=== PATIENT | female | born 1995 | race Caucasian/White ===

== ENCOUNTER 2022-08-09 16:04 | Emergency (ER) | payer OTHER, SELFPAY ==
[2022-08-09 16:24] VITALS: BP 150/98; PULSE 65; RESP 16; TEMP 36.7; O2SAT 100
--- NOTE | 2022-08-09 16:50 | ED.URI ---
HPI - URI/Sore Throat General Chief Complaint: Upper Respiratory Infection Stated Complaint: chest congestion Time Seen by Provider: 08/09/22 16:50 Source: patient Mode of arrival: ambulatory Limitations: no limitations History of Present Illness HPI Narrative: 27 yo F presents with c/o sinus congestion, bilateral ear pain, sore throat, PND for 2 days. Has had pain to L ear for 3 days. Was seen at [facility] urgent care and given amoxicillin and medrol dosepak. is also taking sudafed and saline nasal spray. Reports sudafed and steroids making her anxiety worse. denies chest pain and shortness of breath. All systems reviewed and negative except as noted above. Related Data Home Medications Medication Instructions Recorded Confirmed Flonase 08/09/22 Sudafed 08/09/22 amoxicillin 875 mg tablet mg 08/09/22 escitalopram oxalate 10 mg tablet mg 08/09/22 methylprednisolone 4 mg tablets in mg 08/09/22 a dose pack Allergies Allergy/AdvReac Type Severity Reaction Status Date / Time No Known Allergies Allergy Mild Unverified 08/09/22 16:48 Review of Systems Review of Systems: CONSTITUTIONAL: Denies fever, chills, or sweats. EYES: Denies visual changes, redness, or discharge. ENT: Reports rhinorrhea, congestion, sore throat, postnasal drainage, bilateral ear pain. CARDIOVASCULAR: Denies chest pain, palpitations, or edema. RESPIRATORY: Denies cough or dyspnea. GASTROINTESTINAL: Denies abdominal pain, nausea, vomiting, or diarrhea. GENITOURINARY: Denies dysuria or hematuria. SKIN: Denies rash or itching. MUSCULOSKELETAL: Denies back pain, joint pain, or myalgia. NEUROLOGIC: Denies headache, numbness, or weakness. PSYCHIATRIC: Denies anxiety or depression. All other systems reviewed are negative, except as documented in HPI. PMFSH Comments At time of signature, agree with nursing past medical, surgical, social and family history. There is no relevant family history pertinent to the presenting complaint. Exam Narrative: GENERAL: This is a well-nourished, well-developed patient, in no apparent distress. HEAD: normocephalic, atraumatic. EYES: PERRL. Sclera clear/white. Vision is grossly intact. EARS: External ears normal, auditory canals clear and without drainage, clear fluid bilateral TMs. Mild erythema to left TM. No perforation bilaterally. NOSE: External nose normal with Clear nasal drainage, no erythema or swelling to nares. THROAT: Mucous membranes moist, Clear postnasal drainage. NECK: Neck supple, non-tender without lymphadenopathy, masses or thyromegaly. CARDIOVASCULAR: Regular rate and rhythm without murmurs, gallops, or rubs. RESPIRATORY: Clear to auscultation. Breath sounds equal bilaterally. No wheezes, rales, or rhonchi. SKIN: warm, Dry, intact with no suspicious lesions or rash, good texture and turgor. NEURO: awake, alert, and oriented to person, place and time. There were no obvious focal neurologic abnormalities. EXTREMITIES: No joint tenderness, effusion, or edema noted. Course Course Level of Care: Express Care Visit Vital Signs Vital signs: Vital Signs Temperature 36.7 C 08/09/22 16:24 Pulse Rate 65 08/09/22 16:24 Respiratory Rate 16 08/09/22 16:24 Blood Pressure 150/98 H 08/09/22 16:24 Pulse Oximetry 100 08/09/22 16:24 Oxygen Delivery Room Air 08/09/22 16:24 Temperature 36.7 C 08/09/22 16:24 Pulse Rate 65 08/09/22 16:24 Respiratory Rate 16 08/09/22 16:24 Blood Pressure 150/98 H 08/09/22 16:24 Pulse Oximetry 100 08/09/22 16:24 Oxygen Delivery Room Air 08/09/22 16:24 Reviewed MDM - URI/Sore Throat MDM Narrative Medical decision making narrative: Patient is aware of diagnosis, understands and agrees to treatment plan. Anticipatory guidance given. Patient agrees to follow-up as directed and is aware of reasons to seek care at the emergency department. Portions of this record may have been created with voice recognition software
== END 2022-08-09 17:04 | disposition home or self-care (01) ==
PROVIDERS: Emergency Provider Nurse Practitioner Family; PCP Internal Medicine
DX: H65.03 Acute serous otitis media, bilateral (principal); J01.90 Acute sinusitis, unspecified
CPT/HCPCS: 99211; G0463

== ENCOUNTER 2024-04-12 05:57 | Emergency (ER) | payer OTHER, SELFPAY ==
[2024-04-12 05:58] VITALS: BP 136/81; PULSE 110; RESP 16; TEMP 36.3; O2SAT 100
[2024-04-12 06:53] LABS: Influenza A QL RT-PCR Positive (Negative); Influenza B QL RT-PCR Negative (Negative); SARS-CoV-2 RNA PCR Negative (Negative)
--- NOTE | 2024-04-12 07:14 | ED_ITS ---
HPI - General Adult General Chief complaint: Upper Respiratory Infection Stated complaint: fever, congestion Time Seen by Provider: 04/12/24 06:52 History of Present Illness HPI narrative: 29-year-old female present to the emergency department for evaluation for cough congestion body aches and fever for the past 24 hours. Related Data Home Medications ?Medication ?Instructions ?Recorded ?Confirmed ?Last Taken ?Type Flonase 08/09/22 Unknown History Allergies Allergy/AdvReac Type Severity Reaction Status Date / Time No Known Allergies Allergy Mild Unverified 04/12/24 06:02 Review of Systems Review of Systems: All systems reviewed & are unremarkable except as noted in HPI and below Exam Narrative: APPEARANCE: Well appearing, no pain, no distress, well-nourished. HEAD: normocephalic, atraumatic. EYES: PERRLA/EOMI, conjunctivae clear. NOSE: Normal no drainage EARS:TMS clear with good light reflex. THROAT: Pharynx clear, no exudate. NECK: Supple. No adenopathy, no masses. RESPIRATORY: Airway patent, respirations nonlabored. Clear to auscultation bilaterally, no rales, rhonchi, wheezing. CARDIOVASCULAR: Regular rate and rhythm without murmurs rubs or gallops. ABDOMINAL: Soft, nontender, nondistended, normal bowel sounds MUSCULOSKELETAL: Moves all extremities. Strength/ROM intact, No edema, No calf tenderness. NEURO: Alert. Cranial nerves II through XII intact. Good gait. Good coordination SKIN: Warm, dry. Normal Color Course Vital Signs Vital signs: Vital Signs Temperature 97.4 F L 04/12/24 05:58 Pulse Rate 110 H 04/12/24 05:58 Respiratory Rate 16 04/12/24 05:58 Blood Pressure 136/81 04/12/24 05:58 Pulse Oximetry 100 04/12/24 05:58 Oxygen Delivery Room Air 04/12/24 05:58 Temperature 97.4 F L 04/12/24 05:58 Pulse Rate 110 H 04/12/24 05:58 Respiratory Rate 16 04/12/24 05:58 Blood Pressure 136/81 04/12/24 05:58 Pulse Oximetry 100 04/12/24 05:58 Oxygen Delivery Room Air 04/12/24 05:58 Medical Decision Making [facility] Narrative Medical decision making narrative: 29-year-old female presenting ED for evaluation for body aches fever cough and shortness of breath. Patient did test positive for influenza A. Patient's vital signs are within normal limits other than a mildly elevated heart rate. Patient is not hypoxic and is maintaining oxygen on room air. Patient family updated on the results of the workup and plan for treatment for home. All questions concerns were addressed. Differential Diagnosis Differential Diagnosis: COVID flu RSV influenza pneumonia Vital Signs Vital Signs: Vital Signs Temperature 97.4 F L 04/12/24 05:58 Pulse Rate 110 H 04/12/24 05:58 Respiratory Rate 16 04/12/24 05:58 Blood Pressure 136/81 04/12/24 05:58 Pulse Oximetry 100 04/12/24 05:58 Oxygen Delivery Room Air 04/12/24 05:58 Temperature 97.4 F L 04/12/24 05:58 Pulse Rate 110 H 04/12/24 05:58 Respiratory Rate 16 04/12/24 05:58 Blood Pressure 136/81 04/12/24 05:58 Pulse Oximetry 100 04/12/24 05:58 Oxygen Delivery Room Air 04/12/24 05:58 Lab Data Labs: Lab Results 04/12/24 Range/Units 06:09 Influenza A (RT-PCR) Positive A (Negative) Influenza B (RT-PCR) Negative (Negative) SARS-CoV-2 RNA (RT-PCR) Negative (Negative) Discharge Plan Discharge Clinical Impression: Upper respiratory infection, Influenza Patient Disposition: Home, Self-Care Condition: Stable Instructions: Antibiotic Form, Influenza (ED) Additional Instructions: Tylenol and ibuprofen for body aches and fever control. Drink plenty of fluids. Albuterol inhaler for shortness breath and Tessalon Perles for cough. Have close follow-up with your primary care physician. Patient Language: Vietnamese Prescriptions: New albuterol sulfate 90 mcg/actuation HFA aerosol inhaler 1 puff inhalation QID PRN (Reason: shortness of breath or wheezing) Qty: 6.7 0RF benzonatate 100 mg capsule 100 mg PO TID PRN (Reason: cough) Qty: 14 0RF No Action Flonase Follow-up/Referrals: Harpreet Sierra MD [Primary Care Provider] -
--- NOTE | 2024-04-12 07:14 | PC.NURSE ---
This RN took over care of this patient at this time
--- OUTSIDE RECORDS SUMMARY | 2024-04-19 04:29 | XMS_ITS | Clinical Summary ---
Author Organization [facility] Address [address] [place] [address] Phone Care Team Providers Care Pressing Machine Operator Name Role Phone Unavailable Primary Care Provider Unavailabl e Medications Medication Sig Dispensed Refills Start Date End Date Status norethindrone Ac-Eth estradiol 1-20 mg-mcg tablet TAKE 1 TABLET DAILY 63 Tablet 3 12/28/2019 Active Social History Tobacco Use Types Packs/Day Years Used Date Smoking Tobacco: Never Assessed Sex and Gender Information Value Date Recorded Sex Assigned at Not on file Gender Identity Not on file Sexual Orientation Not on file Plan of Treatment Health Maintenance Due Date Last Done Comments DTAP/TDAP/TD VACCINES (1 - Tdap) 01/09/2016 HEPATITIS B VACCINES (1 of 3 - 19+ 3-dose series) 01/09/2016 CERVICAL CANCER SCREENING 2018 INFLUENZA VACCINE (#1) 2023 HPV VACCINES Aged Out No longer eligi ble based on patient's age to complete this topic PNEUMOCOCCAL VACCINE 0-64 YEARS Aged Out No longer eligible based on patient's age to complete this topic
--- OUTSIDE RECORDS SUMMARY | 2024-04-19 04:29 | XMS_ITS | Clinical Summary ---
Author Organization [facility] Care Team Providers Care Backup Administrator Name Role Phone Unavailable Primary Care Provider Unavailabl e Social History Tobacco Use Types Packs/Day Years Used Date Smoking Tobacco: Never Assessed Comments Unknown Sex and Gender Information Value Date Recorded Sex Assigned at Not on file Legal Sex Female 11:09 AM CDT Gender Identity Not on file Sexual Orientation Not on file Plan of Treatment Health Maintenance Due Date Last Done Comments Hepatitis C Virus (HCV) Screening 1997 TdaP Immunization 1997 Human Papillomavirus (HPV) Immunization (1 - 3-dose series) 01/09/2012 Hepatitis B Immunization (1 of 3 - 19+ 3-dose series) 01/09/2016 Pap Smear 2018 SARS-COV-2 Immunization ( season) 2022 Influenza Immunization (Seas on Ended) 2023 Meningococcal Immunization (ACWY) Aged Out No longer eligible based on patient's age to complete this topic Pneumococcal Immunization Combined Aged Out No longer eligible based on patient's age to complete this topic Rotavirus Immunization Aged Out No lo nger eligible based on patient's age to complete this topic
--- OUTSIDE RECORDS SUMMARY | 2024-04-19 04:29 | XMS_ITS | Encounter Summary ---
Author Organization [facility] Address [address] [place] [id number] Care Team Providers Care Communication Technician Name Role Phone Unavailable Primary Care Provider Unavailabl e Encounter Details Date Type Department Care Team (Late st Contact Info) Description 06/30/2020 Lab Requisition [facility] Community Testing [facility] [address] [place] [address] Wilver Pablo MD [address] [place] [address] [address] [place], [place] [id number] Social History Tobacco Use Types Packs/Day Years Used Date Smoking Tobacco: Never Assessed Comments Unknown Sex and Gender Information Value Date Recorded Sex Assigned at Not on file Legal Sex Female 11:09 AM CDT Gender Identity Not on file Sexual Orientation Not on file documented as of this encounter Plan of Treatment Not on file documented as of this encounter Procedures Procedure Name Priority Date/Time Associated Diagnosis Comments SARS-COV-2 PCR [facility] ONLY Routine 06/30/2020 11:14 AM CDT documented in this encounter Visit Diagnoses Not on filedocumented in this encounter
--- OUTSIDE RECORDS SUMMARY | 2024-04-19 04:29 | XMS_ITS | Encounter Summary ---
Author Organization [facility] Address [address] [place] [address] Care Team Providers Care Electrical Accessories I Assembler Name Role Phone Unavailable Primary Care Provider Unavailabl e Reason for Visit * Reason Comments Medication Refill Encounter Details Date Type Department Care Team (Late st Contact Info) Description 12/01/2020 Refill [facility] [place] BURLES[employer] DANCER Medical [facility] [address] [place] [address] [place] [address] Azael Chaudhary MD [id number] [place] [address] Social History Tobacco Use Types Packs/Day Years Used Date Smoking Tobacco: Never Assessed Sex and Gender Information Value Date Recorded Sex Assigned at Not on file Gender Identity Not on file Sexual Orientation Not on file documented as of this encounter Plan of Treatment Not on file documented as of this encounter Visit Diagnoses Not on filedocumented in this encounter
--- OUTSIDE RECORDS SUMMARY | 2024-04-19 04:29 | XMS_ITS | Encounter Summary ---
Author Organization [facility] Address [address] [place] [address] Care Team Providers Care Asp Web Developer Name Role Phone Unavailable Primary Care Provider Unavailabl e Encounter Details Date Type Department Care Team (Late st Contact Info) Description 06/30/2020 11:30 AM CDT Rapid Evaluation [facility] Community Testing [address] [address] Social History Tobacco Use Types Packs/Day Years [...]
--- OUTSIDE RECORDS SUMMARY | 2024-04-19 04:29 | XMS_ITS | Encounter Summary ---
Author Organization [facility] Address [address] [place] [address] Care Team Providers Care Lithographer Helper Name Role Phone Unavailable Primary Care Provider Unavailabl e Reason for Visit * Reason Comments Medication Refill Encounter Details Date Type Department Care Team (Late st Contact Info) Description 12/28/2019 Refill [facility] DIRECTOR PROFESSIONAL SERVICES Medical [facility] [address] [address] [place] [address] Azael Chaudhary MD [address] [place] [address] Social History Tobacco Use Types [...]
== END 2024-04-12 07:27 | disposition home or self-care (01) ==
PROVIDERS: Emergency Medicine; Emergency Provider Emergency Medicine; PCP Internal Medicine
DX: J10.1 Influenza due to other identified influenza virus with other respiratory manifestations (principal); Z20.822 Contact with and (suspected) exposure to COVID-19
CPT/HCPCS: 87636; 99283